=== PATIENT | male | born 1945 | race Caucasian/White ===

== ENCOUNTER 2019-06-21 22:16 | Emergency (ER) | payer MEDICARE, OTHER ==
[~2019-06-21] VITALS: Ht 170.2 cm; Wt 68.0 kg
[2019-06-21] MEDS: NEOMY/BACITRA/POLYMYXIN B OINT UD PACKET TP ONE (23:00)
[2019-06-21] MEDS ORDERED: NEOMY/BACITRA/POLYMYXIN B OINT UD PACKET TP ONE (23:06)
--- NOTE | 2019-06-21 23:18 | NUR ---
Patient discharged to home in stable conditon. Written and verbal after care instructions given. Patient verbalizes understanding of instructions. Patient ambulated with stable gait.
[2019-06-21 23:19] VITALS: BP 123/55
== END 2019-06-21 23:20 | disposition home or self-care (01) ==
LOC: ER 22:16
DX: S60.131A Contusion of right middle finger with damage to nail, initial encounter (principal); L08.9 Local infection of the skin and subcutaneous tissue, unspecified; X58.XXXA Exposure to other specified factors, initial encounter; Y93.89 Activity, other specified; Y92.89 Other specified places as the place of occurrence of the external cause; Y99.8 Other external cause status
CPT/HCPCS: 73120; A4663